=== PATIENT | male | born 1990 | race American Indian/Alaskan Native ===

== ENCOUNTER 2018-10-14 11:25 | Emergency (ER) | payer OTHER ==
--- NOTE | 2018-10-14 11:47 | Emergency Department Report ---
ED Rash HPI - HPI Chief Complaint: Skin Rash Stated Complaint: RASH SPREAD/PAIN Time Seen by Provider: 10/14/18 11:37 Location: Abdomen, Lower Extremities (thighs), Other (groin) Rash Symptoms: Yes Itching, No Facial Swelling, No Tongue/Oral Swelling, No Breathing Difficulties, No Choking Sensation, No Wheezing/Dyspnea, No Peeling, No Blistering, No Fever, No Lightheaded, No Malaise, No Myalgias Severity: moderate, severe Other History: This is a 28-year-old male who presents to the ED complaining of itching rash gets worse at night. Patient states that he's been doing with this for about a year. Patient states he's been to a hospital several times DAILY and is seen treatment which is a cream that he has to wash off and 2 sets of pills that he has to take. She states that this initially started in [place] where he resided. Patient's states that he is new resident of [place] just moved to [place]. He is to experiencing symptoms ED Review of Systems ROS: Stated complaint: RASH SPREAD/PAIN Other details as noted in HPI Comment: All other systems reviewed and negative ED Past Medical Hx - Past Medical History Previous Medical History?: No - Surgical History Past Surgical History?: No - Social History Smoking Status: Current Every Day Smoker Substance Use Type: Marijuana - Medications Home Medications: Home Medications Medication Instructions Recorded Confirmed Last Taken Type Ivermectin [Stromectol] 12 mg PO QDAY #24 tab 10/14/18 Unknown Rx Permethrin 5% [Acticin 5% CREAM] 1 applicatio TP DAILY #2 tube 10/14/18 Unknown Rx Triamcinolone 0.5% [Kenalog 0.5% 1 applic TP TID #1 tube 10/14/18 Unknown Rx CREAM] hydrOXYzine HCL [Atarax] 25 mg PO Q6HR PRN #30 tablet 10/14/18 Unknown Rx Rash Exam - Exam General: Vital signs noted. No distress. Alert and acting appropriately. HEENT: No Periorbital Edema, No Conjuctival Injection, No Chemosis, No Perioral Edema, No Tongue Edema, No Uvular Edema, No Compromised Airway, No Drooling Lungs: Yes Good Air Exchange (Normal Breath Sounds), No Wheezes, No Ronchi, No Stridor, No Cough, No Labored Respirations, No Retractions, No Use of Accessory Muscles, No Other Abnormal Lung Sounds Heart: Yes Regular, No Murmur Skin: Yes Maculopapular Rash, Yes Excoriations, Yes Encrustations, Yes Other (multiple Gen. scratch ernandez in the groin area, abdomen), No Urticarial Rash, No Morbilliform rash, No Bulla(e), No Weeping, No Tenderness, No Erythema, No Edema Other: Positive: Abdomen Normal, Neurologic Normal, Musculoskeletal Normal ED Course Vital Signs 10/14/18 11:30 Temperature 97.7 F Pulse Rate 68 Respiratory 18 Rate Blood Pressure 112/82 O2 Sat by Pulse 100 Oximetry ED Medical Decision Making - Medical Decision Making Patient sent home with prescription for scabies Also referral to hospital pharmacy technician. Discussed patient take medication prescribed, discussed wash all clothes and very hot temperature and water. Discussed examination of his sleeping quarters as small as mattresses for bugs He is in no acute distress. He is in no respiratory distress. Critical care attestation.: If time is entered above; I have spent that time in minutes in the direct care of this critically ill patient, excluding procedure time. ED Disposition Clinical Impression: Crusted scabies Disposition: DC-01 TO HOME OR SELFCARE Is pt being admited?: No Does the pt Need Aspirin: No Condition: Stable Instructions: Scabies (ED) Additional Instructions: You have received Dual medication therapy Permethrin 5% cream daily to full body for 7 days, then twice weekly until cure AND Ivermectin 200 mcg/kg orally on days 1, 2, 8, 9, and 15 Make sure to follow up with the hospital pharmacy technician as discussed. Take all your medications as you've been prescribed. If you have any worsening symptoms or develop new symptoms please return to ED immediately. Prescriptions: hydrOXYzine HCL [Atarax] 25 mg PO Q6HR PRN #30 tablet PRN Reason: Itching Ivermectin [Stromectol] 12 mg PO QDAY #24 tab Permethrin 5% [Acticin 5% CREAM] 1 applicatio TP DAILY #2 tube Triamcinolone 0.5% [Kenalog 0.5% CREAM] 1 applic TP TID #1 tube Referrals: NADJA RAO MD [Staff Physician] - 3-5 Days Forms: Work/School Release Form(ED) Time of Disposition: 12:16
== END 2018-10-14 12:37 | disposition home or self-care (01) ==
LOC: ED 11:25
CPT/HCPCS: 99282

== ENCOUNTER 2019-07-12 13:55 | Emergency (ER) | payer OTHER ==
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
--- NOTE | 2019-07-12 14:33 | XRay Report ---
. LEFT SHOULDER 3 VIEWS INDICATION: left shoulder pain. COMPARISON: None available. FINDINGS: There is a questionable nondisplaced fracture of the acromion on the transscapular Y view. Clinical c orrelation with point tenderness is suggested. If warranted clinically, dedicated left shoulder CT or MRI may be useful for further evaluation. No other fracture or dislocation is seen within the left s houlder. Signer Name: Russ Nguyen MD Signed: 07/12/2019 2:29 PM Workstation Name: [id number]
[2019-07-12] MEDS ORDERED: IBUPROFEN 800 MG TAB PO ONE (16:30)
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
[2019-07-12 18:07] VITALS: BP 125/78
== END 2019-07-12 17:06 | disposition home or self-care (01) ==
LOC: ED 13:55
DX: S42.92XA Fracture of left shoulder girdle, part unspecified, initial encounter for closed fracture (principal); F12.10 Cannabis abuse, uncomplicated; Z79.899 Other long term (current) drug therapy; W22.8XXA Striking against or struck by other objects, initial encounter; Y93.89 Activity, other specified; Y92.89 Other specified places as the place of occurrence of the external cause; Y99.8 Other external cause status
CPT/HCPCS: 99283